=== PATIENT | female | born 1970 | race Two or more races ===

== ENCOUNTER 2025-07-24 11:08 | Inpatient (IN) | payer OTHER ==
[~2025-07-24] VITALS: Ht 172.7 cm; Wt 90.7 kg
[~2025-07-24 11:08] MED LIST: AMBIEN10 MG PO; AMOX-CLAV 875-1 EAC1 PO; CHLORTHALIDONE25 MG PO; COZAAR100 MG PO; INTESTINEX680 M1 PO; LOSARTAN POTAS100 MG PO; PREMARIN0.45 MG PO; SINGULAIR10 MG PO; TOPROL XL100 M1; VYTORIN 10-201 EACH
[2025-07-24 17:47] LABS: INR 1.1
[2025-07-29] MEDS ORDERED: levoFLOXacin IN DEXTROSE 5 % 5 MG/ML PIGGYBAG IV ONE (07:13)
[2025-07-29] MEDS ORDERED: METRONIDAZOLE/SODIUM CHLORIDE 500 MG/100 ML PIGGYBACK IV ONE (07:13)
[2025-07-29] MEDS ORDERED: LIDOCAINE HCL 1%/EPINEPHRINE 20ML VIAL IJ ONE (07:16)
[2025-07-29] MEDS ORDERED: BUPIVACAINE HCL/Mpf 0.5% 10ML VIAL ONE (07:16)
[2025-07-29] MEDS ORDERED: SUGAMMADEX SODIUM 200 MG/2 ML VIAL IV ONE (10:17)
[2025-07-29] MEDS ORDERED: MORPHINE SULFATE 4 MG/ML CARTRIDGE IV PRN (10:45)
[2025-07-29] MEDS ORDERED: ONDANSETRON HCL 2 MG/ML VIAL IV PRN (10:45)
[2025-07-29] MEDS ORDERED: OxyCODONE HCL 5 MG TABLET (ROXICODONE) PO PRN (10:45)
[2025-07-29] MEDS ORDERED: RINGERS SOLUTION,LACTATED 1,000 ML IV SCH (10:45)
[2025-07-29] MEDS ORDERED: DEXTROSE 50 % IN WATER 0.5 G/ML DISP.SYRIN IV PRN (10:45)
[2025-07-29] MEDS ORDERED: ONDANSETRON HCL 2 MG/ML VIAL ONE (12:24)
[2025-07-29] MEDS ORDERED: FLUCONAZOLE IN NACL,ISO-OSM 50 ML IV STA (12:45)
[2025-07-29] MEDS ORDERED: ENALAPRILAT DIHYDRATE 1.25 MG/ML VIAL IV PRN (12:45)
[2025-07-29] MEDS ORDERED: HYOSCYAMINE SULFATE 0.125 MG TAB.SUBL SL SCH (13:00)
[2025-07-29] MEDS ORDERED: SIMETHICONE 125 MG CAPSULE PO SCH (13:00)
[2025-07-29 13:01] LABS: BASO % 0.4 % (0.1-1.2); EOS # 0.03 (0.04-0.54); EOS % 0.1 % (0.7-7.0); LYMPH # 1.90 (1.18-3.74); LYMPH % 8.5 % (19.3-53.1); MEAN PLATELET VOLUME 9.80 fl (9.4-12.4); MONO # 1.11 (0.24-0.82); MONO % 5.0 % (4.7-12.5); NEUT # 19.05 (1.56-6.13); NEUT % 85.7 % (34.0-71.1); RED CELL DISTRIBUTION WIDTH 12.5 % (11.6-14.4)
[2025-07-29] MEDS ORDERED: FLUCONAZOLE IN NACL,ISO-OSM 2 MG/ML ML IV STA (13:01)
[2025-07-29 13:58] LABS: BUN CREA RATIO 13.0 (7.0-25.0); CREATININE SERUM 0.53 mg/dL (0.55-1.02); GFR 120.21; GLUCOSE FASTING 141.0 mg/dL (65-100); OSMOLALITY SERUM 285.0 MOSM/KG (275-295)
[2025-07-29] MEDS ORDERED: ACETAMINOPHEN 500 MG GEL..CAP PO SCH (14:00)
[2025-07-29] MEDS ORDERED: CELECOXIB 200 MG CAPSULE PO SCH (17:00)
[2025-07-29] MEDS ORDERED: GABAPENTIN 300 MG CAPSULE PO SCH (17:00)
[2025-07-29] MEDS ORDERED: METOCLOPRAMIDE HCL 5 MG/ML VIAL IV SCH (17:00)
[2025-07-29 17:07] VITALS: BP 128/83; O2SAT 95
[2025-07-29] MEDS ORDERED: FAMOTIDINE/PF 20 MG/2 ML VIAL IV PUSH SCH (21:00)
[2025-07-29] MEDS ORDERED: MONTELUKAST SODIUM 10 MG TABLET PO SCH (21:00)
[2025-07-30 01:26] VITALS: BP 104/69; O2SAT 100
[2025-07-30 07:29] LABS: BASO % 0.4 % (0.1-1.2); EOS # 0.07 (0.04-0.54); EOS % 0.6 % (0.7-7.0); LYMPH # 2.31 (1.18-3.74); LYMPH % 21.3 % (19.3-53.1); MEAN PLATELET VOLUME 10.20 fl (9.4-12.4); MONO # 1.22 (0.24-0.82); MONO % 11.3 % (4.7-12.5); NEUT # 7.16 (1.56-6.13); NEUT % 66.1 % (34.0-71.1); RED CELL DISTRIBUTION WIDTH 12.4 % (11.6-14.4)
[2025-07-30 07:56] LABS: BUN CREA RATIO 11.0 (7.0-25.0); CREATININE SERUM 0.54 mg/dL (0.55-1.02); GFR 117.65; GLUCOSE FASTING 117.0 mg/dL (65-100); OSMOLALITY SERUM 282.0 MOSM/KG (275-295)
[2025-07-30] MEDS ORDERED: METOPROLOL SUCCINATE 100 MG TAB.SR.24H PO SCH (09:00)
[2025-07-30] MEDS ORDERED: PATIENTS OWN MEDICATION (MEDICAMENTO EN PISO) PO SCH ×2 (09:00→17:00)
[2025-07-30] MEDS ORDERED: LACTOBACILLUS ACIDOPHILUS 1 CAP CAP PO SCH (09:00)
[2025-07-30] MEDS ORDERED: LACTULOSE 20 G/30 ML BLIST.PACK PO SCH (09:00)
[2025-07-30] MEDS ORDERED: LOSARTAN POTASSIUM 100 MG TABLET PO SCH (09:00)
[2025-07-30] MEDS ORDERED: FLUCONAZOLE 100 MG TABLET PO SCH (09:00)
[2025-07-30 09:02] VITALS: BP 109/71; O2SAT 92
[2025-07-30] MEDS ORDERED: MAGNESIUM SULFATE IN WATER 50 ML IV NR (12:00)
[2025-07-30 16:28] VITALS: BP 90/60; O2SAT 95
[2025-07-30] MEDS ORDERED: ENOXAPARIN SODIUM 40 MG/0.4 ML SYRINGE SUBCUTANEO SCH (17:00)
[2025-07-30 18:12] VITALS: BP 124/85
[2025-07-31 00:27] VITALS: BP 108/73; O2SAT 95
[2025-07-31 06:15] LABS: BASO % 0.6 % (0.1-1.2); EOS # 0.38 (0.04-0.54); EOS % 3.1 % (0.7-7.0); LYMPH # 3.21 (1.18-3.74); LYMPH % 26.0 % (19.3-53.1); MEAN PLATELET VOLUME 10.30 fl (9.4-12.4); MONO # 1.30 (0.24-0.82); MONO % 10.5 % (4.7-12.5); NEUT # 7.33 (1.56-6.13); NEUT % 59.5 % (34.0-71.1); RED CELL DISTRIBUTION WIDTH 12.6 % (11.6-14.4)
[2025-07-31 06:51] LABS: BUN CREA RATIO 9.0 (7.0-25.0); CREATININE SERUM 0.43 mg/dL (0.55-1.02); GFR 153.02; GLUCOSE FASTING 105.0 mg/dL (65-100); OSMOLALITY SERUM 284.0 MOSM/KG (275-295)
[2025-07-31 07:30] VITALS: BP 129/81; O2SAT 96
[2025-07-31] MEDS ORDERED: ENOXAPARIN SODIUM 40 MG/0.4 ML SYRINGE SUBCUTANEO SCH (09:00)
[2025-07-31] MEDS ORDERED: MAGNESIUM SULFATE IN WATER 50 ML IV STA (10:45)
[2025-07-31] MEDS ORDERED: NAPH,MB-DB/K PH,MBDB 1 PKT PACKET PO NR (11:00)
== END 2025-07-31 13:59 | disposition home or self-care (01) | DRG 329 ==
LOC: O/R 07-29 06:00 → SURG 07-29 11:15 → SURH 07-29 14:27
PROVIDERS: Internal Medicine Geriatric Medicine; ADMIT Colon & Rectal Surgery; ATTEND Colon & Rectal Surgery
PROC: 0DBP4ZZ Excision of Rectum, Percutaneous Endoscopic Approach (ICD-10-PCS; 2025-07-29)
PROC: 0DJD8ZZ Inspection of Lower Intestinal Tract, Via Natural or Artificial Opening Endoscopic (ICD-10-PCS; 2025-07-29)
PROC: 0DTN4ZZ Resection of Sigmoid Colon, Percutaneous Endoscopic Approach (ICD-10-PCS; principal; 2025-07-29 11:30)
DX: K57.32 Diverticulitis of large intestine without perforation or abscess without bleeding (principal); K65.1 Peritoneal abscess; N17.9 Acute kidney failure, unspecified; R10.32 Left lower quadrant pain; R10.9 Unspecified abdominal pain; K58.9 Irritable bowel syndrome, unspecified; I10 Essential (primary) hypertension; E78.00 Pure hypercholesterolemia, unspecified; E66.9 Obesity, unspecified; R73.01 Impaired fasting glucose; Z68.30 Body mass index [BMI] 30.0-30.9, adult